=== PATIENT | male | born 1955 | race Caucasian/White ===

== ENCOUNTER 2018-01-11 02:15 | Emergency (ER) | payer SELFPAY ==
[~2018-01-11] VITALS: Ht 180.3 cm; Wt 113.4 kg
[2018-01-11] MEDS ORDERED: PROAIR HFA8.5 GM INH (02:31)
[2018-01-11 02:42] VITALS: BP 127/64
[2018-01-11] MEDS ORDERED: PRED50TA PO (02:55)
--- NOTE | 2018-01-11 03:34 | RAD ---
AP portable chest radiograph 01/11/2018 Clinical History: Shortness of breath for last 2 hours. An AP erect portable digital radiograph of the chest was obtained. Comparison study is dated 12/30/2013. The cardiac silhouette is normal in size. The thoracic aorta is minimally tortuous. No acute pulmonary infiltrate is seen. No pleural effusion or pneumothorax is noted. Degenerative changes are seen involving the thoracic spine and shoulders. Impression: No acute abnormality is seen. Electronically signed by: Mata Sanders MD (01/11/2018 3:30 AM) [id number]
--- NOTE | 2018-01-11 03:41 | PHYS DOC ---
Past Medical History Past Medical History: Asthma, Seizure, Other Additional Past Medical Histor: pt reports seizure free 31 years Past Surgical History: No Surgical History Alcohol Use: None Drug Use: None Adult General Chief Complaint Chief Complaint: SHORTNESS OF BREATH [facility] Patient is a 62 year old male brought in by ambulance with shortness of breath apparently he burned some potatoes that was spoke to fold up his kitchen it exacerbated his previously Janki asthma. Apparently he had saturations in the high 80s X gave DuoNeb which improved significantly on arrival to the emergency room he is feeling much better Patient says he has not had any asthma symptoms for over 7 years he has never been a smoker he does not have any medical insurance so he does not get regular follow up. He says he occasionally has some chest tightness with breathing since the nebulizer treatment from the paramedics but overall he is feeling much better Review of Systems Review of Systems Constitutional: Denies fever or chills [] Eyes: Denies change in visual acuity, redness, or eye pain [] HENT: Denies nasal congestion or sore throat [] Respiratory: This was a sudden onset symptoms he had not had any other symptoms previous Cardiovascular: No additional information not addressed in HPI [] Neurologic: Denies headache, focal weakness or sensory changes [] All other systems were reviewed and found to be within normal limits, except as documented in this note. Allergies Allergies Allergies Coded Allergies Type Severity Reaction Last Updated Verified Sulfa (Sulfonamide Antibiotics) Allergy Intermediate Rash 12/30/13 Yes Physical Exam Physical Exam Constitutional: Well developed, well nourished, no acute distress, non-toxic appearance. [] HENT: Normocephalic, atraumatic, bilateral external ears normal, oropharynx moist, no oral exudates, nose normal. [] Eyes: PERRLA, EOMI, conjunctiva normal, no discharge. [] Neck: Normal range of motion, no tenderness, supple, no stridor. [] Cardiovascular:Heart rate regular rhythm, no murmur [] Lungs & Thorax: Patient speaking full sentences possible very faint wheezing in the right lung base however not repeatable and subsequent breath Abdomen: Bowel sounds normal, soft, no tenderness, no masses, no pulsatile masses. [] Skin: Warm, dry, no erythema, no rash. [] Back: No tenderness, no CVA tenderness. [] Extremities: No tenderness, no cyanosis, no clubbing, ROM intact, no edema. [] Neurologic: Alert and oriented X 3, normal motor function, normal sensory function, no focal deficits noted. [] Psychologic: Affect normal, judgement normal, mood normal. [] Current Patient Data Vital Signs Vital Signs Date Time Temp Pulse Resp B/P (MAP) Pulse Ox O2 Delivery O2 Flow Rate FiO2 01/11/18 02:42 78 22 127/64 (85) 95 Room Air 01/11/18 02:19 97.9 97.9 EKG EKG [] Radiology/Procedures Radiology/Procedures [] Impressions: My interpretation of chest x-ray normal cardiac silhouette normal bones no pneumothorax. Interpreted by me time of encounter Course & Med Decision Making Course & Med Decision Making Pertinent Labs and Imaging studies reviewed. (See chart for details) []62-year-old male with known asthma presenting with a asthma exacerbation likely related to smoke exposure. Albuterol was given by the medics with basically resolution of symptoms sat was in the mid to high 90s screening x-ray was negative prescription for albuterol and prednisone was given patient was instructed to return precautions and he is agreeable to the plan. Dragon Disclaimer Dragon Disclaimer This electronic medical record was generated, in whole or in part, using a voice recognition dictation system. Departure Departure Impression: Primary Impression: Asthma Disposition: 01 HOME, SELF-CARE Condition: STABLE Referrals: NO PCP (PCP) NON,STAFF Patient Instructions: Asthma Attacks, Prevention Scripts Prednisone (PREDNISONE) 50 Mg Tablet 1 TAB PO DAILY, #5 TAB Prov: NABIL MCRAE MD 01/11/18 Albuterol Sulfate (PROAIR HFA INHALER) 8.5 Gm Hfa.aer.ad 1 PUFF INH PRN Q6HRS PRN for SHORTNESS OF BREATH, #1 INHALER 0 Refills Prov: NABIL MCRAE MD 01/11/18 NABIL MCRAE MD Jan 11, 2018 03:41
== END 2018-01-11 03:06 | disposition home or self-care (01) ==
LOC: ER 02:15
DX: J45.909 Unspecified asthma, uncomplicated (principal); Z88.2 Allergy status to sulfonamides
CPT/HCPCS: 71045; 99283

== ENCOUNTER 2020-10-06 13:05 | Observation (INO) | payer MEDICARE ==
[~2020-10-06] VITALS: Ht 180.3 cm; Wt 118.4 kg
[2020-10-06] VITALS (7 sets, daily range): BP systolic 119–135; BP diastolic 54–71
[~2020-10-06 13:05] MED LIST: ALBU2.5V8 INH; ASPI-886 PO; ATOR20TA58 PO; PRED-220 PO; PRED50TA PO
[2020-10-06] MEDS ORDERED: ONDANSETRON PF 4 MG/2 ML VIAL. ONE ×2 (13:17→16:10)
[2020-10-06] MEDS ORDERED: MORPHINE SULFATE 4 MG/ML INJ. IVP ONE (13:30)
[2020-10-06] MEDS ORDERED: IV NORMAL SALINE 1000ML BAG 1,000 ML IV ONE (13:30)
[2020-10-06] MEDS ORDERED: ONDANSETRON PF 4 MG/2 ML VIAL. IVP ONE ×2 (13:30→15:30)
[2020-10-06 13:38] LABS: BASO % 0 % (0-3); EOS % 0 % (0-3); HEMATOCRIT 37.7 % (39.0-53.0); HEMOGLOBIN 12.9 g/dL (13.0-17.5); LYMPH # 0.8 x10^3/uL (1.0-4.8); LYMPH % 5 % (24-48); MEAN CORPUSCULAR HEMOGLOBIN 31 pg (25-35); MEAN CORPUSCULAR HGB CONC 34 g/dL (31-37); MEAN CORPUSCULAR VOLUME 92 fL (79-100); MONO # 0.8 x10^3/uL (0.0-1.1); MONO % 5 % (0-9); NEUT # 12.9 x10^3/uL (1.8-7.7); NEUT % 89 % (31-73); PLATELET COUNT 294 x10^3/uL (140-400); RED BLOOD COUNT 4.11 x10^6/uL (4.30-5.70); RED CELL DISTRIBUTION WIDTH 13.7 % (11.5-14.5); WHITE BLOOD COUNT 14.5 x10^3/uL (4.0-11.0)
[2020-10-06 13:49] LABS: CALCIUM 8.8 mg/dL (8.5-10.1); CREATININE 1.1 mg/dL (0.7-1.3); GFR 67.2; POTASSIUM 3.9 mmol/L (3.5-5.1)
[2020-10-06 13:55] LABS: ALBUMIN 3.6 g/dL (3.4-5.0); TOTAL BILIRUBIN 0.6 mg/dL (0.2-1.0); TOTAL PROTEIN 7.2 g/dL (6.4-8.2)
[2020-10-06] MEDS ORDERED: IOHEXOL 300 MG/ML 100ML VIAL. IV ONE (14:00)
[2020-10-06] MEDS ORDERED: CONTRAST GIVEN. MC PRN (14:00)
--- NOTE | 2020-10-06 14:22 | RAD ---
EXAMINATION: CT abdomen and pelvis with IV contrast. INDICATION:65 years, Male, abdominal pain, nausea and vomiting.. TECHNIQUE: Axial CT images of the abdomen and pelvis were obtained. Coronal and sagittal reformatted performed. COMPARISON: None. Exposure: One or more of the following individualized dose reduction techniques were utilized for thi s examination: 1. Automated exposure control 2. Adjustment of the mA and/or kV according to patient size 3. Use of iterative reconstruction technique. FINDINGS: LOWER CHEST: Calcified granuloma in the left lung base. Dependent subsegmental atelectasis in bibasilar lungs, gre ater in the left. ABDOMEN/PELVIS: Distended mid/distal appendix with appendicoliths and periappendicular fat stranding. No extraluminal gas to suggest perforation. No abscess identified. No bowel obstruction. Colonic diverticulosis with out diverticulitis. Small hiatal hernia. Normal size and morphology of the liver with homogeneous enhancement. No suspicious focal hepatic les ion. Spleen, gallbladder, biliary ducts and adrenals are unremarkable. Mildly atrophic pancreas with fat infiltration. No hydronephrosis or nephrolithiasis in either kidney. Nonspecific bilateral perine phric fat stranding. Normal caliber abdominal aorta. Mesenteric arteries and portal vein are patent. Calcified periaortic lymph nodes. No lymphadenopathy in the abdomen or pelvis by size criteria. No pneumoperitoneum or asc ites. Unremarkable urinary bladder. Coarse calcifications in the prostate. MUSCULOSKELETAL: No acute osseous process. Mild degenerative changes in the spine. Small fat-containing bilateral emilie ia. IMPRESSION: Acute uncomplicated appendicitis. Electronically signed by: Lalito Short MD (10/06/2020 2:20 PM) [facility]
[2020-10-06] MEDS ORDERED: HYDROmorphone 2 MG/ML VIAL IVP ONE (15:15)
[2020-10-06 15:25] LABS: % BANDS 3 % (0-9); % LYMPHS 7 % (24-48); % MONOS 5 % (0-10); % SEGS 85 % (35-66)
[2020-10-06 15:26] LABS: PLT ESTIMATE ADEQUATE (ADEQUATE)
[2020-10-06] MEDS ORDERED: HYDROmorphone 2 MG/ML VIAL IVP PRN (16:00)
[2020-10-06] MEDS ORDERED: IV RINGERS,LACTATED 1000ML 1,000 ML IV SCH (16:00)
[2020-10-06] MEDS ORDERED: fentaNYL PF VIAL 100 MCG/2 ML VIAL IVP PRN ×2 (16:00)
[2020-10-06] MEDS ORDERED: PROCHLORPERAZINE 10 MG/2 ML VIAL. IVP PRN (16:00)
[2020-10-06] MEDS ORDERED: BUPIVACAINE-EPI 0.25%-1:200000 MPF 30 ML VIAL. ONE (16:03)
[2020-10-06 16:10] LABS: BILIRUBIN,URINE NEGATIVE (NEG); CLARITY,URINE CLEAR; COLOR,URINE YELLOW; NITRITE,URINE NEGATIVE (NEG); PH,URINE 5.5 (<5.0-8.0); PROTEIN,URINE NEGATIVE (NEG-TRACE); UROBILINOGEN,URINE 0.2 mg/dL (0.2 mg/dL)
[2020-10-06] MEDS ORDERED: DEXAMETHASONE SOD PHOS 4 MG/ML VIAL ONE (16:10)
[2020-10-06] MEDS ORDERED: LIDOCAINE 1% PF 5 ML VIAL. ONE (16:10)
[2020-10-06] MEDS ORDERED: PROPOFOL 10 MG/ML (20ML) VIAL. IV ONE (16:10)
[2020-10-06] MEDS ORDERED: ROCURONIUM 50 MG/5 ML VIAL. ONE (16:10)
[2020-10-06] MEDS ORDERED: fentaNYL PF VIAL 100 MCG/2 ML VIAL ONE ×2 (16:10→17:14)
[2020-10-06] MEDS ORDERED: GLYCOPYRROLATE 1 MG/5 ML VIAL. ONE (16:11)
[2020-10-06] MEDS ORDERED: NEOSTIGMINE METHYLSULFATE 5 MG/5 ML SYRINGE. ONE (16:11)
[2020-10-06 16:17] LABS: BARBITURATES NEG (NEG); BENZODIAZEPINES NEG (NEG); CANNABINOIDS NEG (NEG); COCAINE NEG (NEG); METHADONE NEG (NEG); OPIATES POS (NEG); PHENCYCLIDINE NEG (NEG)
[2020-10-06 16:19] LABS: AMPHETAMINE/METHAMPHETAMINE NEG (NEG)
[2020-10-06] MEDS ORDERED: PIPERACILLIN/TAZOBACTAM 3.375 GM in IV NORMAL SALINE 50ML 50 ML IV ONE (16:30)
--- NOTE | 2020-10-06 16:33 | PDOC2 ---
CONSULT Date of Consult Date of Consult DATE: 10/06/20 TIME: 16:30 Reason for Consult Reason for Consult: Abdominal pain nausea vomiting Identification/Chief Complaint Chief Complaint Abdominal pain Source Source: Chart review, Patient History of Present Illness Reason for Visit: 65-year-old male who has been feeling ill for approximately 2 days with nausea vomiting abdominal pain mostly right lower quadrant came to emergency department further evaluation CT scan shows signs consistent with acute appendicitis without abscess or rupture elevated white count and low-grade fever Past Medical History Cardiovascular: Hyperlipidemia Pulmonary: Asthma CENTRAL NERVOUS SYSTEM: Seizure GI: No pertinent hx Heme/Onc: No pertinent hx Hepatobiliary: No pertinent hx Psych: No pertinent hx Musculoskeletal: Osteoarthritis Rheumatologic: No pertinent hx Infectious disease: No pertinent hx Renal/: No pertinent hx Endocrine: No pertinent hx Past Surgical History Past Surgical History: Other Family History Family History: Diabetes Social History ALCOHOL: occassional Drugs: None Lives: Alone Current Medications Current Medications Current Medications Ondansetron HCl (Zofran) 4 mg STK-MED ONCE .ROUTE ; Start 10/06/20 at 13:17; Stop 10/06/20 at 13:17; Status DC Ondansetron HCl (Zofran) 4 mg 1X ONCE IVP Last administered on 10/06/20at 13:25; Start 10/06/20 at 13:30; Stop 10/06/20 at 13:31; Status DC Morphine Sulfate (Morphine Sulfate) 4 mg 1X ONCE IVP Last administered on 10/06/20at 13:32; Start 10/06/20 at 13:30; Stop 10/06/20 at 13:31; Status DC Sodium Chloride 1,000 ml @ 1,000 mls/hr 1X ONCE IV Last administered on 10/06/20at 13:30; Start 10/06/20 at 13:30; Stop 10/06/20 at 14:29; Status DC Iohexol (Omnipaque 300 Mg/ml) 75 ml 1X ONCE IV Last administered on 10/06/20at 14:02; Start 10/06/20 at 14:00; Stop 10/06/20 at 14:01; Status DC Info (CONTRAST GIVEN -- Rx MONITORING) 1 each PRN DAILY PRN MC SEE COMMENTS; Start 10/06/20 at 14:00; Stop 10/08/20 at 13:59 Hydromorphone HCl (Dilaudid) 1 mg 1X ONCE IVP Last administered on 10/06/20at 15:16; Start 10/06/20 at 15:15; Stop 10/06/20 at 15:16; Status DC Ondansetron HCl (Zofran) 4 mg 1X ONCE IVP Last administered on 10/06/20at 15:23; Start 10/06/20 at 15:30; Stop 10/06/20 at 15:31; Status DC Fentanyl Citrate (Fentanyl 2ml Vial) 25 mcg PRN Q5MIN PRN IVP MILD PAIN 1-3; Start 10/06/20 at 16:00; Stop 10/07/20 at 15:59 Fentanyl Citrate (Fentanyl 2ml Vial) 50 mcg PRN Q5MIN PRN IVP MODERATE PAIN 4- 6; Start 10/06/20 at 16:00; Stop 10/07/20 at 15:59 Morphine Sulfate (Morphine Sulfate) 1 mg PRN Q10MIN PRN IVP SEVERE PAIN 7-10; Start 10/06/20 at 16:00; Stop 10/07/20 at 15:59 Ringer's Solution 1,000 ml @ 30 mls/hr Q24H IV ; Start 10/06/20 at 16:00; Stop 10/07/20 at 03:59 Hydromorphone HCl (Dilaudid) 0.5 mg PRN Q10MIN PRN IVP SEVERE PAIN 7-10, 2nd CHOICE; Start 10/06/20 at 16:00; Stop 10/07/20 at 15:59 Prochlorperazine Edisylate (Compazine) 5 mg PACU PRN PRN IVP NAUSEA, MRX1; Start 10/06/20 at 16:00; Stop 10/07/20 at 15:59 Bupivacaine HCl/ Epinephrine Bitart (Sensorcaine-Epi 0.25%-1:832666 Mpf) 30 ml STK-MED ONCE .ROUTE ; Start 10/06/20 at 16:03; Stop 10/06/20 at 16:03; Status DC Propofol (Diprivan) 200 mg STK-MED ONCE IV ; Start 10/06/20 at 16:10; Stop 10/06/20 at 16:10; Status DC Lidocaine HCl (Xylocaine-Mpf 1% 5ml Vial) 5 ml STK-MED ONCE .ROUTE ; Start 10/06/20 at 16:10; Stop 10/06/20 at 16:10; Status DC Ondansetron HCl (Zofran) 4 mg STK-MED ONCE .ROUTE ; Start 10/06/20 at 16:10; Stop 10/06/20 at 16:10; Status DC Dexamethasone Sodium Phosphate (Decadron) 4 mg STK-MED ONCE .ROUTE ; Start 10/06/20 at 16:10; Stop 10/06/20 at 16:10; Status DC Rocuronium [place] (Zemuron) 50 mg STK-MED ONCE .ROUTE ; Start 10/06/20 at 16:10; Stop 10/06/20 at 16:10; Status DC Fentanyl Citrate (Fentanyl 2ml Vial) 100 mcg STK-MED ONCE .ROUTE ; Start 10/06/20 at 16:10; Stop 10/06/20 at 16:11; Status DC Glycopyrrolate (Robinul) 1 mg STK-MED ONCE .ROUTE ; Start 10/06/20 at 16:11; Stop 10/06/20 at 16:11; Status DC Neostigmine [place] (Neostigmine Methylsulfate) 5 mg STK-MED ONCE .ROUTE ; Star t 10/06/20 at 16:11; Stop 10/06/20 at 16:11; Status DC Active Scripts Active Aspirin Ec (Aspirin) 81 Mg Tablet.dr 81 Mg PO DAILYWBKFT 90 Days Atorvastatin Calcium 20 Mg Tablet 20 Mg PO QHS 90 Days Reported No Known Medications Prior To Admisstion (Info) Each 1 Each MC ONCE Allergies Allergies: Coded Allergies: Sulfa (Sulfonamide Antibiotics) (Verified Allergy, Intermediate, Rash, 12/30/13) ROS General: YES: Malaise Gastrointestinal: Yes Nausea, Yes Vomiting, Yes Abdominal Pain Physical Exam General: Alert, Oriented X3, Cooperative, mild distress HEENT: Atraumatic, EOMI Lungs: Clear to auscultation, Normal air movement Heart: Regular rate, No murmurs Abdomen: Normal bowel sounds, Soft, Other (Tender to palpation right lower quadrant) Extremities: No edema Skin: No significant lesion Neuro: Normal speech Psych/Mental Status: Mental status NL Vitals VITALS Vital Signs Date Time Temp Pulse Resp B/P (MAP) Pulse Ox O2 Delivery O2 Flow Rate FiO2 8/26/21 16:21 98.4 86 16 122/62 96 Room Air 98.4 Labs Labs Laboratory Tests Test 10/06/20 13:25 10/06/20 13:35 10/06/20 16:00 White Blood Count 14.5 x10^3/uL (4.0-11.0) Red Blood Count 4.11 x10^6/uL (4.30-5.70) Hemoglobin 12.9 g/dL (13.0-17.5) Hematocrit 37.7 % (39.0-53.0) Mean Corpuscular Volume 92 fL (79-100) Mean Corpuscular Hemoglobin 31 pg (25-35) Mean Corpuscular Hemoglobin Concent 34 g/dL (31-37) Red Cell Distribution Width 13.7 % (11.5-14.5) Platelet Count 294 x10^3/uL (140-400) Neutrophils (%) (Auto) 89 % (31-73) Lymphocytes (%) (Auto) 5 % (24-48) Monocytes (%) (Auto) 5 % (0-9) Eosinophils (%) (Auto) 0 % (0-3) Basophils (%) (Auto) 0 % (0-3) Neutrophils # (Auto) 12.9 x10^3/uL (1.8-7.7) Lymphocytes # (Auto) 0.8 x10^3/uL (1.0-4.8) Monocytes # (Auto) 0.8 x10^3/uL (0.0-1.1) Eosinophils # (Auto) 0.0 x10^3/uL (0.0-0.7) Basophils # (Auto) 0.0 x10^3/uL (0.0-0.2) Segmented Neutrophils % 85 % (35-66) Band Neutrophils % 3 % (0-9) Lymphocytes % 7 % (24-48) Monocytes % 5 % (0-10) Platelet Estimate Adequate (ADEQUATE) Sodium Level 139 mmol/L (136-145) Potassium Level 3.9 mmol/L (3.5-5.1) Chloride Level 105 mmol/L (98-107) Carbon Dioxide Level 24 mmol/L (21-32) Anion Gap 10 (6-14) Blood Urea Nitrogen 18 mg/dL (8-26) Creatinine 1.1 mg/dL (0.7-1.3) Estimated GFR (Cockcroft-Gault) 67.2 BUN/Creatinine Ratio 16 (6-20) Glucose Level 124 mg/dL (70-99) Calcium Level 8.8 mg/dL (8.5-10.1) Total Bilirubin 0.6 mg/dL (0.2-1.0) Aspartate Amino Transf (AST/SGOT) 14 U/L (15-37) Alanine Aminotransferase (ALT/SGPT) 32 U/L (16-63) Alkaline Phosphatase 72 U/L (46-116) Total Protein 7.2 g/dL (6.4-8.2) Albumin 3.6 g/dL (3.4-5.0) Albumin/Globulin Ratio 1.0 (1.0-1.7) Lipase 62 U/L (73-393) Ethyl Alcohol Level < 10 mg/dL (0-10) SARS-CoV-2 Antigen (Rapid) Negative (NEGATIVE) Urine Opiates Screen Pos (NEG) Urine Methadone Screen Neg (NEG) Urine Barbiturates Neg (NEG) Urine Phencyclidine Screen Neg (NEG) Urine Amphetamine/Methamphetamine Neg (NEG) Urine Benzodiazepines Screen Neg (NEG) Urine Cocaine Screen Neg (NEG) Urine Cannabinoids Screen Neg (NEG) Urine Ethyl Alcohol Neg (NEG) Laboratory Tests Test 10/06/20 13:25 10/06/20 13:35 10/06/20 16:00 White Blood Count 14.5 x10^3/uL (4.0-11.0) Red Blood Count 4.11 x10^6/uL (4.30-5.70) Hemoglobin 12.9 g/dL (13.0-17.5) Hematocrit 37.7 % (39.0-53.0) Mean Corpuscular Volume 92 fL (79-100) Mean Corpuscular Hemoglobin 31 pg (25-35) Mean Corpuscular Hemoglobin Concent 34 g/dL (31-37) Red Cell Distribution Width 13.7 % (11.5-14.5) Platelet Count 294 x10^3/uL (140-400) Neutrophils (%) (Auto) 89 % (31-73) Lymphocytes (%) (Auto) 5 % (24-48) Monocytes (%) (Auto) 5 % (0-9) Eosinophils (%) (Auto) 0 % (0-3) Basophils (%) (Auto) 0 % (0-3) Neutrophils # (Auto) 12.9 x10^3/uL (1.8-7.7) Lymphocytes # (Auto) 0.8 x10^3/uL (1.0-4.8) Monocytes # (Auto) 0.8 x10^3/uL (0.0-1.1) Eosinophils # (Auto) 0.0 x10^3/uL (0.0-0.7) Basophils # (Auto) 0.0 x10^3/uL (0.0-0.2) Segmented Neutrophils % 85 % (35-66) Band Neutrophils % 3 % (0-9) Lymphocytes % 7 % (24-48) Monocytes % 5 % (0-10) Platelet Estimate Adequate (ADEQUATE) Sodium Level 139 mmol/L (136-145) Potassium Level 3.9 mmol/L (3.5-5.1) Chloride Level 105 mmol/L (98-107) Carbon Dioxide Level 24 mmol/L (21-32) Anion Gap 10 (6-14) Blood Urea Nitrogen 18 mg/dL (8-26) Creatinine 1.1 mg/dL (0.7-1.3) Estimated GFR (Cockcroft-Gault) 67.2 BUN/Creatinine Ratio 16 (6-20) Glucose Level 124 mg/dL (70-99) Calcium Level 8.8 mg/dL (8.5-10.1) Total Bilirubin 0.6 mg/dL (0.2-1.0) Aspartate Amino Transf (AST/SGOT) 14 U/L (15-37) Alanine Aminotransferase (ALT/SGPT) 32 U/L (16-63) Alkaline Phosphatase 72 U/L (46-116) Total Protein 7.2 g/dL (6.4-8.2) Albumin 3.6 g/dL (3.4-5.0) Albumin/Globulin Ratio 1.0 (1.0-1.7) Lipase 62 U/L (73-393) Ethyl Alcohol Level < 10 mg/dL (0-10) SARS-CoV-2 Antigen (Rapid) Negative (NEGATIVE) Urine Opiates Screen Pos (NEG) Urine Methadone Screen Neg (NEG) Urine Barbiturates Neg (NEG) Urine Phencyclidine Screen Neg (NEG) Urine Amphetamine/Methamphetamine Neg (NEG) Urine Benzodiazepines Screen Neg (NEG) Urine Cocaine Screen Neg (NEG) Urine Cannabinoids Screen Neg (NEG) Urine Ethyl Alcohol Neg (NEG) Assessment/Plan Assessment/Plan Acute appendicitis plan laparoscopic appendectomy DERRICK CORREA MD Oct 06, 2020 16:33
[2020-10-06 16:37] LABS: BACTERIA,URINE FEW /HPF (0-FEW)
[2020-10-06 16:50] LABS: INFLUENZA A PATIENT NEGATIVE (NEGATIVE); INFLUENZA B PATIENT NEGATIVE (NEGATIVE)
[2020-10-06] MEDS ORDERED: SURGICEL HEMOSTAT 4X8 EACH. ONE (17:14)
[2020-10-06] MEDS ORDERED: SEVOFLURANE 61 TO 120 MINUTES. IH ONE (17:19)
--- NOTE | 2020-10-06 17:34 | PDOC4 ---
Operative Note Operative Note Date: October 062020 at 1731 Preoperative diagnosis: Acute appendicitis Postoperative diagnosis: Same Procedure: Laparoscopic appendectomy Specimen: Appendix Surgeon: Dilip Dictation: Patient is a 65-year-old male was admitted to the hospital through the emergency department with acute appendicitis by CT scan and leukocytosis. Procedure of laparoscopic appendectomy was explained to the patient detail risk benefits were also discussed including bleeding infection alternatives this procedure also discussed with patient who seemed to understand and gave both verbal and written consent to have the procedure performed. Patient was taken to the operating room placed in the supine position general anesthesia was initiated once patient was sleeping intubated his abdomen was prepped and draped usual sterile fashion using ChloraPrep. Area just below the umbilicus was injected with quarter percent Marcaine with epinephrine incision was made 11 blade scalpel and a varies needle was placed within the abdomen creating pneumoperitoneum once this was complete a 12 mm port was placed and a 5 mm camera was placed within the abdomen which was inspected appendix was quite dilated and edematous. No evidence of rupture. 5 mm port was placed in the right midabdomen and a 5 mm port was placed in the right lower abdomen. The appendix was grasped retracted towards the anterior abdominal wall a window was propagated the base the appendix with a [place] dissector. A Endo ABISAI stapler was then used to staple and transect the base of the appendix a second load was used to staple and transect the mesoappendix. The appendix placed in Endo Catch bag removed and the umbilicus there is a small bleeder within the mesoappendix this was clipped with a 10 mm clip lockstitch collar setter. Surgicel was packed in this area the rest of the pelvis and right lower quadrant were irrigated and suctioned dry hemostasis deemed be appropriate that point and the Surgicel was removed. Pneumoperitoneum was reduced all ports removed the fascial defect at the umbilicus was closed with a [id number] 0 Vicryl suture and the skin was reapproximated all port sites for subcuticular Monocryl Mastisol Steri-Strips and island dressings were applied. Patient was awakened and extubated in the operating room taken to recovery in stable condition all sponge instrument needle counts listed as correct estimated blood loss 30 mL DERRICK CORREA MD Oct 06, 2020 17:34
[2020-10-06] MEDS ORDERED: 0.9 % SODIUM CHLORIDE 10 ML DISP.SYRIN. IV PRN (17:45)
[2020-10-06] MEDS ORDERED: MORPHINE SULFATE 2 MG/ML INJ. IV PRN (17:45)
[2020-10-06] MEDS ORDERED: oxyCODONE/APAP 5/325 1 TAB TABLET PO PRN (17:45)
[2020-10-06] MEDS ORDERED: ONDANSETRON PF 4 MG/2 ML VIAL. IV PRN (17:45)
--- NOTE | 2020-10-06 17:52 | PHYS DOC ---
Past Medical History Past Medical History: Asthma, Seizure Additional Past Medical Histor: per ptkristine sz 10/04/20 (LOLACATALINAHARDEEP Jacqueline TENNIS PLAYER) Past Surgical History: No Surgical History (HARDEEP EGAN Jacqueline [employer]) Smoking Status: Never Smoker Alcohol Use: None Drug Use: None (HARDEEP EGAN Jacqueline [employer]ER) General Adult EDM: Chief Complaint: ABDOMINAL PAIN HPI: HPI: Patient is a 65 year old male with history of seizures, who presents to the ED today complaining of 10 out of 10 sharp constant lower abdominal pain worse on the right side, symptoms began yesterday. Patient states symptoms are worse on touching his right lower abdomen. Patient is also complaining of nausea, vomiting, chills and subjective fevers since yesterday. Denies any chest pain or shortness of breath. (HARDEEP EGAN TENNIS PLAYER) Review of Systems: Review of Systems: Constitutional: Reports subjective fevers and chills Eyes: Denies change in visual acuity. [] HENT: Denies nasal congestion or sore throat. [] Respiratory: Denies cough or shortness of breath. [] Cardiovascular: Denies chest pain or edema. [] GI: Reports right lower quadrant abdominal pain with nausea, and vomiting denies bloody stools or diarrhea. [] : Denies dysuria. [] Musculoskeletal: Denies back pain or joint pain. [] Integument: Denies rash. [] Neurologic: Denies headache, focal weakness or sensory changes. [] Psychiatric: Denies depression or anxiety. [] (LESTERIsaakHARDEEP Jacqueline TENNIS PLAYER) Heart Score: C/O Chest Pain: N/A Risk Factors: Risk Factors: DM, Current or recent (<one month) smoker, HTN, HLP, family history of CAD, obesity. Risk Scores: Score 0 - 3: 2.5% MACE over next 6 weeks - Discharge Home Score 4 - 6: 20.3% MACE over next 6 weeks - Admit for Clinical Observation Score 7 - 10: 72.7% MACE over next 6 weeks - Early Invasive Strategies (LESTERIsaakHARDEEP Jacqueline [employer]ENNIS PLAYER) Current Medications: Current Medications Medications (Trade) Dose Ordered Sig/Lon Start Time Stop Time Status Last Admin Dose Admin Bupivacaine HCl/ Epinephrine Bitart (Sensorcaine-Epi 0.25%-1:[id number] Mpf) 30 ml STK-MED ONCE 10/06/20 16:03 10/06/20 16:03 DC 10/06/20 16:53 20 ML Cellulose (Surgicel Hemostat 4x8) 1 each STK-MED ONCE 10/06/20 17:14 10/06/20 17:15 DC 10/06/20 17:17 1 EACH Dexamethasone Sodium Phosphate (Decadron) 4 mg STK-MED ONCE 10/06/20 16:10 10/06/20 16:10 DC Dextrose/Lactated Ringer's 1,000 ml @ 75 mls/hr [id number] 10/06/20 17:45 Fentanyl Citrate (Fentanyl 2ml Vial) 100 mcg STK-MED ONCE 10/06/20 17:14 10/06/20 17:14 DC Glycopyrrolate (Robinul) 1 mg STK-MED ONCE 10/06/20 16:11 10/06/20 16:11 DC Hydromorphone HCl (Dilaudid) 0.5 mg PRN Q10MIN PRN 10/06/20 16:00 10/07/20 15:59 Info (CONTRAST GIVEN -- Rx MONITORING) 1 each PRN DAILY PRN 10/06/20 14:00 10/08/20 13:59 Iohexol (Omnipaque 300 Mg/ml) 75 ml 1X ONCE 10/06/20 14:00 10/06/20 14:01 DC 10/06/20 14:02 75 ML Lidocaine HCl (Xylocaine-Mpf 1% 5ml Vial) 5 ml STK-MED ONCE 10/06/20 16:10 10/06/20 16:10 DC Morphine Sulfate (Morphine Sulfate) 2 mg PRN Q3HRS PRN 10/06/20 17:45 Neostigmine [place] (Neostigmine Methylsulfate) 5 mg STK-MED ONCE 10/06/20 16:11 10/06/20 16:11 DC Ondansetron HCl (Zofran) 4 mg PRN Q6HRS PRN 10/06/20 17:45 Oxycodone/ Acetaminophen (Percocet 5/325) 2 tab PRN Q4HRS PRN 10/06/20 17:45 Piperacillin Sod/ Tazobactam Sod 3.375 gm/Sodium Chloride 50 ml @ 100 mls/hr Q6HRS 10/07/20 00:00 Prochlorperazine Edisylate (Compazine) 5 mg PACU PRN PRN 10/06/20 16:00 10/07/20 15:59 Propofol (Diprivan) 200 mg STK-MED ONCE 10/06/20 16:10 10/06/20 16:10 DC Ringer's Solution 1,000 ml @ 30 mls/hr Q24H 10/06/20 16:00 10/07/20 03:59 Rocuronium [place] (Zemuron) 50 mg STK-MED ONCE 10/06/20 16:10 10/06/20 16:10 DC Sevoflurane (Ultane) 60 ml STK-MED ONCE 10/06/20 17:19 10/06/20 17:19 DC Sodium Chloride (Normal Saline Flush) 3 ml QSHIFT PRN 10/06/20 17:45 (HARDEEP EGAN [employer]ENNIS PLAYER) Allergies: Allergies: Allergies Coded Allergies Type Severity Reaction Last Updated Verified Sulfa (Sulfonamide Antibiotics) Allergy Intermediate Rash 10/06/20 Yes (HARDEEP EGAN [employer]ENN[employer] PLAYER) Physical Exam: PE: Constitutional: Well developed, well nourished, no acute distress, non-toxic appearance. [] HENT: Normocephalic, atraumatic, bilateral external ears normal, oropharynx moist, no oral exudates, nose normal. [] Eyes: PERRLA, EOMI, conjunctiva normal, no discharge. [] Neck: Normal range of motion, no tenderness, supple, no stridor. [] Cardiovascular:Heart rate regular rhythm, no murmur [] Lungs & Thorax: Bilateral breath sounds clear to auscultation [] Abdomen: Obese rounded abdomen, bowel sounds normal, soft, diffuse tenderness to the lower abdomen worse on the right lower quadrant with positive psoas sign, no masses, no pulsatile masses. [] Skin: Warm, dry, no erythema, no rash. [] Back: No tenderness, no CVA tenderness. [] Extremities: No tenderness, no cyanosis, no clubbing, ROM intact, no edema. [] Neurologic: Alert and oriented X 3, normal motor function, normal sensory function, no focal deficits noted. [] Psychologic: Affect normal, judgement normal, mood normal. [] (HARDEEP EGAN APRN) Current Patient Data: Labs: Laboratory Tests Test 10/06/20 13:25 10/06/20 13:35 10/06/20 15:53 10/06/20 16:00 White Blood Count 14.5 x10^3/uL (4.0-11.0) H Red Blood Count 4.11 x10^6/uL (4.30-5.70) L Hemoglobin 12.9 g/dL (13.0-17.5) L Hematocrit 37.7 % (39.0-53.0) L Mean Corpuscular Volume 92 fL (79-100) Mean Corpuscular Hemoglobin 31 pg (25-35) Mean Corpuscular Hemoglobin Concent 34 g/dL (31-37) Red Cell Distribution Width 13.7 % (11.5-14.5) Platelet Count 294 x10^3/uL (140-400) Neutrophils (%) (Auto) 89 % (31-73) H Lymphocytes (%) (Auto) 5 % (24-48) L Monocytes (%) (Auto) 5 % (0-9) Eosinophils (%) (Auto) 0 % (0-3) Basophils (%) (Auto) 0 % (0-3) Neutrophils # (Auto) 12.9 x10^3/uL (1.8-7.7) H Lymphocytes # (Auto) 0.8 x10^3/uL (1.0-4.8) L Monocytes # (Auto) 0.8 x10^3/uL (0.0-1.1) Eosinophils # (Auto) 0.0 x10^3/uL (0.0-0.7) Basophils # (Auto) 0.0 x10^3/uL (0.0-0.2) Segmented Neutrophils % 85 % (35-66) H Band Neutrophils % 3 % (0-9) Lymphocytes % 7 % (24-48) L Monocytes % 5 % (0-10) Platelet Estimate Adequate (ADEQUATE) Sodium Level 139 mmol/L (136-145) Potassium Level 3.9 mmol/L (3.5-5.1) Chloride Level 105 mmol/L (98-107) Carbon Dioxide Level 24 mmol/L (21-32) Anion Gap 10 (6-14) Blood Urea Nitrogen 18 mg/dL (8-26) Creatinine 1.1 mg/dL (0.7-1.3) Estimated GFR (Cockcroft-Gault) 67.2 BUN/Creatinine Ratio 16 (6-20) Glucose Level 124 mg/dL (70-99) H Calcium Level 8.8 mg/dL (8.5-10.1) Total Bilirubin 0.6 mg/dL (0.2-1.0) Aspartate Amino Transferase (AST) 14 U/L (15-37) L Alanine Aminotransferase (ALT) 32 U/L (16-63) Alkaline Phosphatase 72 U/L (46-116) Total Protein 7.2 g/dL (6.4-8.2) Albumin 3.6 g/dL (3.4-5.0) Albumin/Globulin Ratio 1.0 (1.0-1.7) Lipase 62 U/L (73-393) L Ethyl Alcohol Level < 10 mg/dL (0-10) SARS-CoV-2 Antigen (Rapid) Negative (NEGATIVE) Influenza Type A Antigen Negative (NEGATIVE) Influenza Type B Antigen Negative (NEGATIVE) Urine Collection Type Void Urine Color Yellow Urine Clarity Clear Urine pH 5.5 (<5.0-8.0) Urine Specific [place] >=1.030 (1.000-1.030) Urine Protein Negative mg/dL (NEG-TRACE) Urine Glucose (UA) Negative mg/dL (NEG) Urine Ketones (Stick) Negative mg/dL (NEG) Urine Blood Small (NEG) Urine Nitrite Negative (NEG) Urine Bilirubin Negative (NEG) Urine Urobilinogen Dipstick 0.2 mg/dL (0.2 mg/dL) Urine Leukocyte Esterase Negative (NEG) Urine RBC 1-2 /HPF (0-2) Urine WBC 1-4 /HPF (0-4) Urine Squamous Epithelial Cells Few /LPF Urine Bacteria Few /HPF (0-FEW) Urine Opiates Screen Pos (NEG) Urine Methadone Screen Neg (NEG) Urine Barbiturates Neg (NEG) Urine Phencyclidine Screen Neg (NEG) Urine Amphetamine/Methamphetamine Neg (NEG) Urine Benzodiazepines Screen Neg (NEG) Urine Cocaine Screen Neg (NEG) Urine Cannabinoids Screen Neg (NEG) Urine Ethyl Alcohol Neg (NEG) Laboratory Tests 10/06/20 13:25 Laboratory Tests 10/06/20 13:25 Vital Signs: Vital Signs Date Time Temp Pulse Resp B/P (MAP) Pulse Ox O2 Delivery O2 Flow Rate FiO2 10/06/20 16:21 98.4 86 16 122/62 96 Room Air 98.4 (HARDEEP EGAN TENNIS PLAYER) EKG: EKG: [] (HARDEEP EGAN [employer]ENN[employer] PLAYER) Radiology/Procedures: Radiology/Procedures: []PROCEDURE: CT ABD PELV W/ IV CONTRST ONLY EXAMINATION: CT abdomen and pelvis with IV contrast. INDICATION:65 years, Male, abdominal pain, nausea and vomiting.. TECHNIQUE: Axial CT images of the abdomen and pelvis were obtained. Coronal and sagittal reformatted performed. COMPARISON: None. Exposure: One or more of the following individualized dose reduction techniques were utilized for this examination: 1. Automated exposure control 2. Adjustment of the mA and/or kV according to patient size 3. Use of iterative reconstruction technique. FINDINGS: LOWER CHEST: Calcified granuloma in the left lung base. Dependent subsegmental atelectasis in bibasilar lungs, greater in the left. ABDOMEN/PELVIS: Distended mid/distal appendix with appendicoliths and periappendicular fat stranding. No extraluminal gas to suggest perforation. No abscess identified. No bowel obstruction. Colonic diverticulosis without diverticulitis. Small hiatal hernia. Normal size and morphology of the liver with homogeneous enhancement. No suspicious focal hepatic lesion. Spleen, gallbladder, biliary ducts and adrenals are unremarkable. Mildly atrophic pancreas with fat infiltration. No hydronephrosis or nephrolithiasis in either kidney. Nonspecific bilateral perinephric fat stranding. Normal caliber abdominal aorta. Mesenteric arteries and portal vein are patent. Calcified periaortic lymph nodes. No lymphadenopathy in the abdomen or pelvis by size criteria. No pneumoperitoneum or ascites. Unremarkable urinary bladder. Coarse calcifications in the prostate. MUSCULOSKELETAL: No acute osseous process. Mild degenerative changes in the spine. Small fat-containing bilateral hernia. IMPRESSION: Acute uncomplicated appendicitis. Electronically signed by: Javid Short MD (10/06/2020 2:20 PM) [facility] DICTATED and SIGNED BY: JAVID SHORT MD DATE: 10/06/20 [id number] (LOLABENITOIsaakHARDEEP Jacqueline TENNIS PLAYER) Course & Med Decision Making: Course & Med Decision Making Pertinent Labs and Imaging studies reviewed. (See chart for details) This is a 65-year-old male patient presenting to the ED today complaining of abdominal pain worse on the right side with nausea and vomiting, chills, subjective fevers, symptoms began yesterday. Vitals on arrival to the ED temperature 99.1, heart rate 88, respiration 20, blood pressure 153/99, O2 sats 99% on room air CBC with a WBC of 14.5, hemoglobin 12.9 with hematocrit of 37.7, CMP with no acute findings CT of the abdomen and pelvics positive for acute appendicitis Spoke with Dr. Cherry who accepted patient for surgery Spoke with Dr. Lopes who admitted patient (HARDEEP EGAN APRN) Dragon Disclaimer: Dragon Disclaimer: This electronic medical record was generated, in whole or in part, using a voice recognition dictation system. (HARDEEP EGAN APRN) Departure Departure Impression: Primary Impression: Acute appendicitis Qualified Codes: K35.80 - Unspecified acute appendicitis Additional Impression: Anemia Qualified Codes: D64.89 - Other specified anemias Disposition: ADMITTED INPATIENT Condition: STABLE Referrals: NO PCP (PCP) Attending Signature Attending Signature I have participated in the care of this patient and I have reviewed and agree with all pertinent clinical information above including history, exam, and recommendations. (VERONICA BRYANT DO) HARDEEP EGAN APRN Oct 06, 2020 17:52 VERONICA BRYANT DO Oct 06, 2020 18:04
[2020-10-06] MEDS ORDERED: MORPHINE SULFATE 2 MG/ML INJ. ONE (18:06)
[2020-10-06] MEDS: MORPHINE SULFATE 2 MG/ML INJ. IVP PRN ×2 (18:08→18:20)
[2020-10-06] MEDS ORDERED: PROCHLORPERAZINE 10 MG/2 ML VIAL. ONE (18:20)
--- NOTE | 2020-10-06 18:22 | SSS ---
ADMIT DATE: 10/06/2020 CHIEF COMPLAINT: Abdominal pain. HISTORY OF PRESENT ILLNESS: The patient is a pleasant 65-year-old male who presented to the ER with abdominal pain. We did a CAT scan, he has got appendicitis. He has been taken for laparoscopic appendectomy a few minutes ago. He just arrived to the postoperative area, where he has been examined. I discussed the case with the ER physician and the nurse and Dr. Cherry, who just performed the surgery. PAST MEDICAL HISTORY: Seizures, but he apparently does not take any medicines for it. States he had grand mal seizures as a kid, but now he only has petite mal seizures once in a while, although he states he did have a seizure couple of days ago. Asthma. ALLERGIES: SULFA. FAMILY HISTORY: Diabetes. SOCIAL HISTORY: He does not drink, smoke or take drugs. MEDICATIONS: Reviewed, please refer to the MRAD. REVIEW OF SYSTEMS: Unable to obtain. The patient is sedated. PHYSICAL EXAMINATION: VITALS: Within normal limits and are stable. GENERAL: No apparent distress. Alert and oriented. HEENT: Normal cephalic atraumatic, external auditory canals are patent. EYES: Extraocular muscles are intact, pupils are equally round and reactive to light and accommodation. MUSCULOSKELETAL: Well developed, well nourished, good range of motion. ENDOCRINE: No thyromegaly was palpated. LYMPHATICS: No cervical chain or axillary nodes were noted. HEMATOPOIETIC: No bruising. NECK: Supple, no JVD, no thyromegaly was noted. LUNGS: Clear to auscultation in all lung lai without rhonchi or wheezing. HEART: RRR, S1, S2 present. Peripheral pulses intact, no obvious murmurs were noted. ABDOMEN: He has decreased bowel sound. He has 3 trocar sites. EXTREMITIES: He has trace edema. NEUROLOGIC: Normal speech, normal tone. A and O x 3, moves all extremities, no obvious focal deficits. PSYCHIATRIC: Normal affect, normal mood. Stable. SKIN: No ulcerations or rashes, good skin turgor, no jaundice. VASCULAR: Good capillary refill, neurovascular bundle appears to be intact. GENITOURINARY: He is uncircumcised. LABORATORY DATA: White count 14, hemoglobin 12.9, platelets 294. Electrolytes are normal. Drug screen positive for opiates, but I suspect he got that in the ER. Urinalysis negative. COVID testing negative. CT of the abdomen showed appendicitis. ASSESSMENT AND PLAN: Postop laparoscopic appendectomy for appendicitis. Clinically, he is stable. I did order some p.r.n. Ativan in case he does have a seizure. If he does have a seizure, we will consult Dr. Silveira. For now, we are going to wound care, home meds. DVT prophylaxis. Full code. I spoke with Dr. Cherry, he would like to go ahead and start feeding the patient later this evening if possible and then will hopefully get him home tomorrow. CARMEN DR: Gay TID: [id number]
[2020-10-06] MEDS ORDERED: ONDANSETRON PF 4 MG/2 ML VIAL. IVP PRN (19:00)
[2020-10-06] MEDS: IV DEXTROSE 5%-LACT RINGERS 1,000 ML IV SCH (20:37)
--- NOTE | 2020-10-06 21:00 | NUR ---
ADMIT NOTE The patient, THAIS SARGENT, 65 y/o, M admitted by GRACIE ADORNO III, DO, was given written information regarding hospital policies, unit procedures and contact persons. Patient orientated to room, plan of care discussed, and admit packet reviewed. Patient's allergies and pharmacy verified; patient reports no active medications. Patient resting in bed, bed in lowest/locked position, and call light within reach; no other needs voiced at this time.
[2020-10-07] MEDS: PIPERACILLIN/TAZOBACTAM 3.375 GM in IV NORMAL SALINE 50ML 50 ML IV SCH ×3 (00:27→11:42)
[2020-10-07 03:06] VITALS: BP 126/72
[2020-10-07] MEDS: oxyCODONE/APAP 5/325 1 TAB TABLET PO PRN ×2 (03:30→07:31)
[2020-10-07 05:38] LABS: BASO % 0 % (0-3); EOS % 0 % (0-3); HEMATOCRIT 35.6 % (39.0-53.0); HEMOGLOBIN 12.2 g/dL (13.0-17.5); LYMPH # 0.5 x10^3/uL (1.0-4.8); LYMPH % 4 % (24-48); MEAN CORPUSCULAR HEMOGLOBIN 32 pg (25-35); MEAN CORPUSCULAR HGB CONC 34 g/dL (31-37); MEAN CORPUSCULAR VOLUME 93 fL (79-100); MONO # 0.4 x10^3/uL (0.0-1.1); MONO % 4 % (0-9); NEUT # 10.7 x10^3/uL (1.8-7.7); NEUT % 92 % (31-73); PLATELET COUNT 276 x10^3/uL (140-400); RED BLOOD COUNT 3.84 x10^6/uL (4.30-5.70); RED CELL DISTRIBUTION WIDTH 13.7 % (11.5-14.5); WHITE BLOOD COUNT 11.7 x10^3/uL (4.0-11.0)
[2020-10-07 07:10] VITALS: BP 113/51
[2020-10-07] MEDS: IV DEXTROSE 5%-LACT RINGERS 1,000 ML IV SCH (07:33)
--- NOTE | 2020-10-07 08:12 | PDOC1 ---
History and Physical Date of Service: DOS: DATE: 10/07/20 TIME: 08:12 Chief Complaint: Chief Complain: Abdominal pain History of Present Illness: HPI: Patient is a 65-year-old male with past medical history of asthma and seizure who presents to the ED complaining of abdominal pain. Pain is on the lower right quadrant 10 out of 10 that began yesterday. Symptoms worsened today upon light touch of the right lower side. Endorses associated symptoms of nausea, vomiting, fevers and chills. Denies any chest pain shortness of breath diarrhea or dysuria or bloody stools. Past Medical/Surgical History: PMH/PSH: Past medical history of seizures and asthma. Past surgical history denies Allergies: Allergies: Coded Allergies: Sulfa (Sulfonamide Antibiotics) (Verified Allergy, Intermediate, Rash, 10/06/20) Family History: Family History: Reviewed with no relevant findings Social History: Social History: Denies any alcohol, drug or tobacco abuse Current Medications: Current Medications Current Medications Ondansetron HCl (Zofran) 4 mg STK-MED ONCE .ROUTE ; Start 10/06/20 at 13:17; Stop 10/06/20 at 13:17; Status DC Ondansetron HCl (Zofran) 4 mg 1X ONCE IVP Last administered on 10/06/20at 13:25; Start 10/06/20 at 13:30; Stop 10/06/20 at 13:31; Status DC Morphine Sulfate (Morphine Sulfate) 4 mg 1X ONCE IVP Last administered on 10/06/20at 13:32; Start 10/06/20 at 13:30; Stop 10/06/20 at 13:31; Status DC Sodium Chloride 1,000 ml @ 1,000 mls/hr 1X ONCE IV Last administered on 10/06/20at 13:30; Start 10/06/20 at 13:30; Stop 10/06/20 at 14:29; Status DC Iohexol (Omnipaque 300 Mg/ml) 75 ml 1X ONCE IV Last administered on 10/06/20at 14:02; Start 10/06/20 at 14:00; Stop 10/06/20 at 14:01; Status DC Info (CONTRAST GIVEN -- Rx MONITORING) 1 each PRN DAILY PRN MC SEE COMMENTS; Start 10/06/20 at 14:00; Stop 10/08/20 at 13:59 Hydromorphone HCl (Dilaudid) 1 mg 1X ONCE IVP Last administered on 10/06/20at 15:16; Start 10/06/20 at 15:15; Stop 10/06/20 at 15:16; Status DC Ondansetron HCl (Zofran) 4 mg 1X ONCE IVP Last administered on 10/06/20at 15:23; Start 10/06/20 at 15:30; Stop 10/06/20 at 15:31; Status DC Fentanyl Citrate (Fentanyl 2ml Vial) 25 mcg PRN Q5MIN PRN IVP MILD PAIN 1-3; Start 10/06/20 at 16:00; Stop 10/07/20 at 04:20; Status DC Fentanyl Citrate (Fentanyl 2ml Vial) 50 mcg PRN Q5MIN PRN IVP MODERATE PAIN 4- 6; Start 10/06/20 at 16:00; Stop 10/07/20 at 04:20; Status DC Morphine Sulfate (Morphine Sulfate) 1 mg PRN Q10MIN PRN IVP SEVERE PAIN 7-10 Last administered on 10/06/20at 18:20; Start 10/06/20 at 16:00; Stop 10/07/20 at 04:20; Status DC Ringer's Solution 1,000 ml @ 30 mls/hr Q24H IV ; Start 10/06/20 at 16:00; Stop 10/07/20 at 03:59; Status DC Hydromorphone HCl (Dilaudid) 0.5 mg PRN Q10MIN PRN IVP SEVERE PAIN 7-10, 2nd CHOICE; Start 10/06/20 at 16:00; Stop 10/07/20 at 04:20; Status DC Prochlorperazine Edisylate (Compazine) 5 mg PACU PRN PRN IVP NAUSEA, MRX1 Last administered on 10/06/20at 18:22; Start 10/06/20 at 16:00; Stop 10/07/20 at 04:20; Status DC Bupivacaine HCl/ Epinephrine Bitart (Sensorcaine-Epi 0.25%-1:895750 Mpf) 30 ml STK-MED ONCE .ROUTE Last administered on 10/06/20at 16:53; Start 10/06/20 at 16:03; Stop 10/06/20 at 16:03; Status DC Propofol (Diprivan) 200 mg STK-MED ONCE IV ; Start 10/06/20 at 16:10; Stop 10/06/20 at 16:10; Status DC Lidocaine HCl (Xylocaine-Mpf 1% 5ml Vial) 5 ml STK-MED ONCE .ROUTE ; Start 10/06/20 at 16:10; Stop 10/06/20 at 16:10; Status DC Ondansetron HCl (Zofran) 4 mg STK-MED ONCE .ROUTE ; Start 10/06/20 at 16:10; Stop 10/06/20 at 16:10; Status DC Dexamethasone Sodium Phosphate (Decadron) 4 mg STK-MED ONCE .ROUTE ; Start 10/06/20 at 16:10; Stop 10/06/20 at 16:10; Status DC Rocuronium Hershey (Zemuron) 50 mg STK-MED ONCE .ROUTE ; Start 10/06/20 at 16:10; Stop 10/06/20 at 16:10; Status DC Fentanyl Citrate (Fentanyl 2ml Vial) 100 mcg STK-MED ONCE .ROUTE ; Start 10/06/20 at 16:10; Stop 10/06/20 at 16:11; Status DC Glycopyrrolate (Robinul) 1 mg STK-MED ONCE .ROUTE ; Start 10/06/20 at 16:11; Stop 10/06/20 at 16:11; Status DC Neostigmine Hershey (Neostigmine Methylsulfate) 5 mg STK-MED ONCE .ROUTE ; Start 10/06/20 at 16:11; Stop 10/06/20 at 16:11; Status DC Piperacillin Sod/ Tazobactam Sod 3.375 gm/Sodium Chloride 50 ml @ 100 mls/hr 1X ONCE IV ; Start 10/06/20 at 16:30; Stop 10/06/20 at 16:59; Status UNV Piperacillin Sod/ Tazobactam Sod 3.375 gm/Sodium Chloride 50 ml @ 100 mls/hr 1X ONCE IV Last administered on 10/06/20at 16:40; Start 10/06/20 at 16:30; Stop 10/06/20 at 16:59; Status DC Fentanyl Citrate (Fentanyl 2ml Vial) 100 mcg STK-MED ONCE .ROUTE ; Start 10/06/20 at 17:14; Stop 10/06/20 at 17:14; Status DC Cellulose (Surgicel Hemostat 4x8) 1 each STK-MED ONCE .ROUTE Last administered on 10/06/20at 17:17; Start 10/06/20 at 17:14; Stop 10/06/20 at 17:15; Status DC Sevoflurane (Ultane) 60 ml STK-MED ONCE IH ; Start 10/06/20 at 17:19; Stop 10/06/20 at 17:19; Status DC Sodium Chloride (Normal Saline Flush) 3 ml QSHIFT PRN IV AFTER MEDS AND BLOOD DRAWS; Start 10/06/20 at 17:45 Morphine Sulfate (Morphine Sulfate) 2 mg PRN Q3HRS PRN IV PAIN; Start 10/06/20 at 17:45 Oxycodone/ Acetaminophen (Percocet 5/325) 1 tab PRN Q4HRS PRN PO MILD PAIN, 1ST CHOICE; Start 10/06/20 at 17:45 Oxycodone/ Acetaminophen (Percocet 5/325) 2 tab PRN Q4HRS PRN PO MODERATE PAIN, SEVERE PAIN Last administered on 10/07/20at 07:31; Start 10/06/20 at 17:45 Ondansetron HCl (Zofran) 4 mg PRN Q6HRS PRN IV NAUSEA, 1ST CHOICE; Start 10/06/20 at 17:45 Dextrose/Lactated Ringer's 1,000 ml @ 75 mls/hr [id number] IV Last administered on 10/07/20at 07:33; Start 10/06/20 at 17:45 Piperacillin Sod/ Tazobactam Sod 3.375 gm/Sodium Chloride 50 ml @ 100 mls/hr Q6HRS IV Last administered on 10/07/20at 06:16; Start 10/07/20 at 00:00 Lorazepam (Ativan Inj) 2 mg PRN Q4HRS PRN IVP ANXIETY / AGITATION; Start 10/06/20 at 18:15 Morphine Sulfate (Morphine Sulfate) 2 mg STK-MED ONCE .ROUTE ; Start 10/06/20 at 18:06; Stop 10/06/20 at 18:06; Status DC Prochlorperazine Edisylate (Compazine) 10 mg STK-MED ONCE .ROUTE ; Start 10/06/20 at 18:20; Stop 10/06/20 at 18:20; Status DC Ondansetron HCl (Zofran) 4 mg PRN Q8HRS PRN IVP NAUSEA/VOMITING; Start 10/06/20 at 19:00; Stop 10/07/20 at 18:59 Active Scripts Active No Active Prescriptions or Reported Medications ROS: Review of Systems Review of System REVIEW OF SYSTEMS: GENERAL: Denies weakness SKIN: No bruising, hair changes or rashes. EYES: No blurred, double or loss of vision. NOSE AND THROAT: No history of nosebleeds, hoarseness or sore throat. HEART: No history of palpitations, chest pain or shortness of breath on exertion. LUNGS: Denies cough, hemoptysis, wheezing or shortness of breath. GASTROINTESTINAL: Denies changes in appetite, nausea, vomiting, diarrhea or constipation. GENITOURINARY: No history of frequency, urgency, hesitancy or nocturia. NEUROLOGIC: Denies history of numbness, tingling, or tremor. PSYCHIATRIC: No history of panic, anxiety or depression. ENDOCRINE: No history of heat or cold intolerance, polyuria or polydipsia. EXTREMITIES: Denies joint pain, pain on walking or stiffness. Physical Exam: Vital Signs: Vital Signs Date Time Temp Pulse Resp B/P (MAP) Pulse Ox O2 Delivery O2 Flow Rate FiO2 10/07/20 04:15 15 93 Room Air 10/07/20 03:06 98.1 88 126/72 (90) 98.1 10/06/20 17:53 10 Physcial Exam: GEN: No apparent distress. Alert and oriented HEENT: Normal cephalic, atraumatic, external auditory canals are patent EYES: Extraocular muscles are intact, pupil are equally round and reactive to light and accommodation MUSCULOSKELETAL: Well developed , well nourished, good range of motion ENDOCRINE: No thyromegaly was palpated LYMPHATICS: No cervical chain or axillary nodes were noted HEMATOPOIETIC: No bruising NECK: Supple, no JVD, no thyromegaly was noted LUNGS: Clear to auscultation in all lung lai without rhonchi or wheezing HEART: RRR, S!, S2 present. Peripheral pulses intact, no obvious murmurs noted ABDOMEN: Soft, nontender. Positive bowel sounds, no organomegaly, normal bowel sounds EXTREMITIES: Without clubbing, cyanosis, or edema. Pedal pulses intact. Negative Homans sign NEUROLOGIC: Normal speech and tone. A&O x 3, moves all extremities, no obvious focal deficits PSYCHIATRIC: Normal affect, normal mood. Stable SKIN: No ulcerations or rashes, good skin turgor, no jaundice VASCULAR: Good capillary refill, neurovascular bundle appears to be intact Labs: Labs: Laboratory Tests Test 10/06/20 13:25 10/06/20 13:35 10/06/20 15:53 10/06/20 16:00 White Blood Count 14.5 x10^3/uL (4.0-11.0) Red Blood Count 4.11 x10^6/uL (4.30-5.70) Hemoglobin 12.9 g/dL (13.0-17.5) Hematocrit 37.7 % (39.0-53.0) Mean Corpuscular Volume 92 fL (79-100) Mean Corpuscular Hemoglobin 31 pg (25-35) Mean Corpuscular Hemoglobin Concent 34 g/dL (31-37) Red Cell Distribution Width 13.7 % (11.5-14.5) Platelet Count 294 x10^3/uL (140-400) Neutrophils (%) (Auto) 89 % (31-73) Lymphocytes (%) (Auto) 5 % (24-48) Monocytes (%) (Auto) 5 % (0-9) Eosinophils (%) (Auto) 0 % (0-3) Basophils (%) (Auto) 0 % (0-3) Neutrophils # (Auto) 12.9 x10^3/uL (1.8-7.7) Lymphocytes # (Auto) 0.8 x10^3/uL (1.0-4.8) Monocytes # (Auto) 0.8 x10^3/uL (0.0-1.1) Eosinophils # (Auto) 0.0 x10^3/uL (0.0-0.7) Basophils # (Auto) 0.0 x10^3/uL (0.0-0.2) Segmented Neutrophils % 85 % (35-66) Band Neutrophils % 3 % (0-9) Lymphocytes % 7 % (24-48) Monocytes % 5 % (0-10) Platelet Estimate Adequate (ADEQUATE) Sodium Level 139 mmol/L (136-145) Potassium Level 3.9 mmol/L (3.5-5.1) Chloride Level 105 mmol/L (98-107) Carbon Dioxide Level 24 mmol/L (21-32) Anion Gap 10 (6-14) Blood Urea Nitrogen 18 mg/dL (8-26) Creatinine 1.1 mg/dL (0.7-1.3) Estimated GFR (Cockcroft-Gault) 67.2 BUN/Creatinine Ratio 16 (6-20) Glucose Level 124 mg/dL (70-99) Calcium Level 8.8 mg/dL (8.5-10.1) Total Bilirubin 0.6 mg/dL (0.2-1.0) Aspartate Amino Transf (AST/SGOT) 14 U/L (15-37) Alanine Aminotransferase (ALT/SGPT) 32 U/L (16-63) Alkaline Phosphatase 72 U/L (46-116) Total Protein 7.2 g/dL (6.4-8.2) Albumin 3.6 g/dL (3.4-5.0) Albumin/Globulin Ratio 1.0 (1.0-1.7) Lipase 62 U/L (73-393) Ethyl Alcohol Level < 10 mg/dL (0-10) SARS-CoV-2 Antigen (Rapid) Negative (NEGATIVE) Influenza Type A Antigen Negative (NEGATIVE) Influenza Type B Antigen Negative (NEGATIVE) Urine Collection Type Void Urine Color Yellow Urine Clarity Clear Urine pH 5.5 (<5.0-8.0) Urine Specific [place] >=1.030 (1.000-1.030) Urine Protein Negative mg/dL (NEG-TRACE) Urine Glucose (UA) Negative mg/dL (NEG) Urine Ketones (Stick) Negative mg/dL (NEG) Urine Blood Small (NEG) Urine Nitrite Negative (NEG) Urine Bilirubin Negative (NEG) Urine Urobilinogen Dipstick 0.2 mg/dL (0.2 mg/dL) Urine Leukocyte Esterase Negative (NEG) Urine RBC 1-2 /HPF (0-2) Urine WBC 1-4 /HPF (0-4) Urine Squamous Epithelial Cells Few /LPF Urine Bacteria Few /HPF (0-FEW) Urine Opiates Screen Pos (NEG) Urine Methadone Screen Neg (NEG) Urine Barbiturates Neg (NEG) Urine Phencyclidine Screen Neg (NEG) Urine Amphetamine/Methamphetamine Neg (NEG) Urine Benzodiazepines Screen Neg (NEG) Urine Cocaine Screen Neg (NEG) Urine Cannabinoids Screen Neg (NEG) Urine Ethyl Alcohol Neg (NEG) Test 10/07/20 04:30 White Blood Count 11.7 x10^3/uL (4.0-11.0) Red Blood Count 3.84 x10^6/uL (4.30-5.70) Hemoglobin 12.2 g/dL (13.0-17.5) Hematocrit 35.6 % (39.0-53.0) Mean Corpuscular Volume 93 fL (79-100) Mean Corpuscular Hemoglobin 32 pg (25-35) Mean Corpuscular Hemoglobin Concent 34 g/dL (31-37) Red Cell Distribution Width 13.7 % (11.5-14.5) Platelet Count 276 x10^3/uL (140-400) Neutrophils (%) (Auto) 92 % (31-73) Lymphocytes (%) (Auto) 4 % (24-48) Monocytes (%) (Auto) 4 % (0-9) Eosinophils (%) (Auto) 0 % (0-3) Basophils (%) (Auto) 0 % (0-3) Neutrophils # (Auto) 10.7 x10^3/uL (1.8-7.7) Lymphocytes # (Auto) 0.5 x10^3/uL (1.0-4.8) Monocytes # (Auto) 0.4 x10^3/uL (0.0-1.1) Eosinophils # (Auto) 0.0 x10^3/uL (0.0-0.7) Basophils # (Auto) 0.0 x10^3/uL (0.0-0.2) Laboratory Tests Test 10/06/20 13:25 10/06/20 13:35 10/06/20 15:53 10/06/20 16:00 White Blood Count 14.5 x10^3/uL (4.0-11.0) Red Blood Count 4.11 x10^6/uL (4.30-5.70) Hemoglobin 12.9 g/dL (13.0-17.5) Hematocrit 37.7 % (39.0-53.0) Mean Corpuscular Volume 92 fL (79-100) Mean Corpuscular Hemoglobin 31 pg (25-35) Mean Corpuscular Hemoglobin Concent 34 g/dL (31-37) Red Cell Distribution Width 13.7 % (11.5-14.5) Platelet Count 294 x10^3/uL (140-400) Neutrophils (%) (Auto) 89 % (31-73) Lymphocytes (%) (Auto) 5 % (24-48) Monocytes (%) (Auto) 5 % (0-9) Eosinophils (%) (Auto) 0 % (0-3) Basophils (%) (Auto) 0 % (0-3) Neutrophils # (Auto) 12.9 x10^3/uL (1.8-7.7) Lymphocytes # (Auto) 0.8 x10^3/uL (1.0-4.8) Monocytes # (Auto) 0.8 x10^3/uL (0.0-1.1) Eosinophils # (Auto) 0.0 x10^3/uL (0.0-0.7) Basophils # (Auto) 0.0 x10^3/uL (0.0-0.2) Segmented Neutrophils % 85 % (35-66) Band Neutrophils % 3 % (0-9) Lymphocytes % 7 % (24-48) Monocytes % 5 % (0-10) Platelet Estimate Adequate (ADEQUATE) Sodium Level 139 mmol/L (136-145) Potassium Level 3.9 mmol/L (3.5-5.1) Chloride Level 105 mmol/L (98-107) Carbon Dioxide Level 24 mmol/L (21-32) Anion Gap 10 (6-14) Blood Urea Nitrogen 18 mg/dL (8-26) Creatinine 1.1 mg/dL (0.7-1.3) Estimated GFR (Cockcroft-Gault) 67.2 BUN/Creatinine Ratio 16 (6-20) Glucose Level 124 mg/dL (70-99) Calcium Level 8.8 mg/dL (8.5-10.1) Total Bilirubin 0.6 mg/dL (0.2-1.0) Aspartate Amino Transf (AST/SGOT) 14 U/L (15-37) Alanine Aminotransferase (ALT/SGPT) 32 U/L (16-63) Alkaline Phosphatase 72 U/L (46-116) Total Protein 7.2 g/dL (6.4-8.2) Albumin 3.6 g/dL (3.4-5.0) Albumin/Globulin Ratio 1.0 (1.0-1.7) Lipase 62 U/L (73-393) Ethyl Alcohol Level < 10 mg/dL (0-10) SARS-CoV-2 Antigen (Rapid) Negative (NEGATIVE) Influenza Type A Antigen Negative (NEGATIVE) Influenza Type B Antigen Negative (NEGATIVE) Urine Collection Type Void Urine Color Yellow Urine Clarity Clear Urine pH 5.5 (<5.0-8.0) Urine Specific [place] >=1.030 (1.000-1.030) Urine Protein Negative mg/dL (NEG-TRACE) Urine Glucose (UA) Negative mg/dL (NEG) Urine Ketones (Stick) Negative mg/dL (NEG) Urine Blood Small (NEG) Urine Nitrite Negative (NEG) Urine Bilirubin Negative (NEG) Urine Urobilinogen Dipstick 0.2 mg/dL (0.2 mg/dL) Urine Leukocyte Esterase Negative (NEG) Urine RBC 1-2 /HPF (0-2) Urine WBC 1-4 /HPF (0-4) Urine Squamous Epithelial Cells Few /LPF Urine Bacteria Few /HPF (0-FEW) Urine Opiates Screen Pos (NEG) Urine Methadone Screen Neg (NEG) Urine Barbiturates Neg (NEG) Urine Phencyclidine Screen Neg (NEG) Urine Amphetamine/Methamphetamine Neg (NEG) Urine Benzodiazepines Screen Neg (NEG) Urine Cocaine Screen Neg (NEG) Urine Cannabinoids Screen Neg (NEG) Urine Ethyl Alcohol Neg (NEG) Test 10/07/20 04:30 White Blood Count 11.7 x10^3/uL (4.0-11.0) Red Blood Count 3.84 x10^6/uL (4.30-5.70) Hemoglobin 12.2 g/dL (13.0-17.5) Hematocrit 35.6 % (39.0-53.0) Mean Corpuscular Volume 93 fL (79-100) Mean Corpuscular Hemoglobin 32 pg (25-35) Mean Corpuscular Hemoglobin Concent 34 g/dL (31-37) Red Cell Distribution Width 13.7 % (11.5-14.5) Platelet Count 276 x10^3/uL (140-400) Neutrophils (%) (Auto) 92 % (31-73) Lymphocytes (%) (Auto) 4 % (24-48) Monocytes (%) (Auto) 4 % (0-9) Eosinophils (%) (Auto) 0 % (0-3) Basophils (%) (Auto) 0 % (0-3) Neutrophils # (Auto) 10.7 x10^3/uL (1.8-7.7) Lymphocytes # (Auto) 0.5 x10^3/uL (1.0-4.8) Monocytes # (Auto) 0.4 x10^3/uL (0.0-1.1) Eosinophils # (Auto) 0.0 x10^3/uL (0.0-0.7) Basophils # (Auto) 0.0 x10^3/uL (0.0-0.2) Images: Images PROCEDURE: CT ABD PELV W/ IV CONTRST ONLY EXAMINATION: CT abdomen and pelvis with IV contrast. INDICATION:65 years, Male, abdominal pain, nausea and vomiting.. TECHNIQUE: Axial CT images of the abdomen and pelvis were obtained. Coronal and sagittal reformatted performed. COMPARISON: None. Exposure: One or more of the following individualized dose reduction techniques were utilized for this examination: 1. Automated exposure control 2. Adjustment of the mA and/or kV according to patient size 3. Use of iterative reconstruction technique. FINDINGS: LOWER CHEST: Calcified granuloma in the left lung base. Dependent subsegmental atelectasis in bibasilar lungs, greater in the left. ABDOMEN/PELVIS: Distended mid/distal appendix with appendicoliths and periappendicular fat stranding. No extraluminal gas to suggest perforation. No abscess identified. No bowel obstruction. Colonic diverticulosis without diverticulitis. Small hiatal hernia. Normal size and morphology of the liver with homogeneous enhancement. No suspicious focal hepatic lesion. Spleen, gallbladder, biliary ducts and adrenals are unremarkable. Mildly atrophic pancreas with fat infiltration. No hydronephrosis or nephrolithiasis in either kidney. Nonspecific bilateral perinephric fat stranding. Normal caliber abdominal aorta. Mesenteric arteries and portal vein are patent. Calcified periaortic lymph nodes. No lymphadenopathy in the abdomen or pelvis by size criteria. No pneumoperitoneum or ascites. Unremarkable urinary bladder. Coarse calcifications in the prostate. MUSCULOSKELETAL: No acute osseous process. Mild degenerative changes in the spine. Small fat- containing bilateral hernia. IMPRESSION: Acute uncomplicated appendicitis. Assessment/Plan Assessment/Plan Acute abdominal pain due to acute appendicitis Obesity class I History of seizures Admit to hospitalist service for further management General surgery consult N.p.o. Continue IV fluids Continue empiric IV antibiotics Lovenox for DVT prophylaxis Protonix GI prophylaxis ADA diet CODE STATUS full Discussed with RN and SW Disposition on-call to the OR with surgery for laparoscopic appendectomy DPOA: Maritza Patrick Justifications for Admission Other Justification CANDIDO HOFF MD Oct 07, 2020 08:12
[2020-10-07] MEDS ORDERED: OXYC1TAB15 PO (09:55)
--- NOTE | 2020-10-07 09:55 | PDOC ---
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 10/07/20 0954: SURGICAL PROGRESS NOTE DATE: 10/07/20 TIME: 09:54 Subjective a little sore did tolerate breakfast Vital Signs Vital Signs Date Time Temp Pulse Resp B/P (MAP) Pulse Ox O2 Delivery O2 Flow Rate FiO2 10/07/20 07:10 98.8 84 18 113/51 (71) 91 Room Air 98.8 10/06/20 17:53 10 I&O Intake and Output 10/07/20 07:00 Intake Total 1330 ml Output Total 30 ml Balance 1300 ml Intake Oral 580 ml IV Total 750 ml Output Estimated Blood Loss 30 ml # Voids 2 General: Alert, Oriented X3, Cooperative Abdomen: Soft, Other (lap dressings dry ) Labs Laboratory Tests Test 10/06/20 13:25 10/06/20 13:35 10/06/20 15:53 10/06/20 16:00 White Blood Count 14.5 x10^3/uL (4.0-11.0) Red Blood Count 4.11 x10^6/uL (4.30-5.70) Hemoglobin 12.9 g/dL (13.0-17.5) Hematocrit 37.7 % (39.0-53.0) Mean Corpuscular Volume 92 fL (79-100) Mean Corpuscular Hemoglobin 31 pg (25-35) Mean Corpuscular Hemoglobin Concent 34 g/dL (31-37) Red Cell Distribution Width 13.7 % (11.5-14.5) Platelet Count 294 x10^3/uL (140-400) Neutrophils (%) (Auto) 89 % (31-73) Lymphocytes (%) (Auto) 5 % (24-48) Monocytes (%) (Auto) 5 % (0-9) Eosinophils (%) (Auto) 0 % (0-3) Basophils (%) (Auto) 0 % (0-3) Neutrophils # (Auto) 12.9 x10^3/uL (1.8-7.7) Lymphocytes # (Auto) 0.8 x10^3/uL (1.0-4.8) Monocytes # (Auto) 0.8 x10^3/uL (0.0-1.1) Eosinophils # (Auto) 0.0 x10^3/uL (0.0-0.7) Basophils # (Auto) 0.0 x10^3/uL (0.0-0.2) Segmented Neutrophils % 85 % (35-66) Band Neutrophils % 3 % (0-9) Lymphocytes % 7 % (24-48) Monocytes % 5 % (0-10) Platelet Estimate Adequate (ADEQUATE) Sodium Level 139 mmol/L (136-145) Potassium Level 3.9 mmol/L (3.5-5.1) Chloride Level 105 mmol/L (98-107) Carbon Dioxide Level 24 mmol/L (21-32) Anion Gap 10 (6-14) Blood Urea Nitrogen 18 mg/dL (8-26) Creatinine 1.1 mg/dL (0.7-1.3) Estimated GFR (Cockcroft-Gault) 67.2 BUN/Creatinine Ratio 16 (6-20) Glucose Level 124 mg/dL (70-99) Calcium Level 8.8 mg/dL (8.5-10.1) Total Bilirubin 0.6 mg/dL (0.2-1.0) Aspartate Amino Transf (AST/SGOT) 14 U/L (15-37) Alanine Aminotransferase (ALT/SGPT) 32 U/L (16-63) Alkaline Phosphatase 72 U/L (46-116) Total Protein 7.2 g/dL (6.4-8.2) Albumin 3.6 g/dL (3.4-5.0) Albumin/Globulin Ratio 1.0 (1.0-1.7) Lipase 62 U/L (73-393) Ethyl Alcohol Level < 10 mg/dL (0-10) SARS-CoV-2 Antigen (Rapid) Negative (NEGATIVE) Influenza Type A Antigen Negative (NEGATIVE) Influenza Type B Antigen Negative (NEGATIVE) Urine Collection Type Void Urine Color Yellow Urine Clarity Clear Urine pH 5.5 (<5.0-8.0) Urine Specific [place] >=1.030 (1.000-1.030) Urine Protein Negative mg/dL (NEG-TRACE) Urine Glucose (UA) Negative mg/dL (NEG) Urine Ketones (Stick) Negative mg/dL (NEG) Urine Blood Small (NEG) Urine Nitrite Negative (NEG) Urine Bilirubin Negative (NEG) Urine Urobilinogen Dipstick 0.2 mg/dL (0.2 mg/dL) Urine Leukocyte Esterase Negative (NEG) Urine RBC 1-2 /HPF (0-2) Urine WBC 1-4 /HPF (0-4) Urine Squamous Epithelial Cells Few /LPF Urine Bacteria Few /HPF (0-FEW) Urine Opiates Screen Pos (NEG) Urine Methadone Screen Neg (NEG) Urine Barbiturates Neg (NEG) Urine Phencyclidine Screen Neg (NEG) Urine Amphetamine/Methamphetamine Neg (NEG) Urine Benzodiazepines Screen Neg (NEG) Urine Cocaine Screen Neg (NEG) Urine Cannabinoids Screen Neg (NEG) Urine Ethyl Alcohol Neg (NEG) Test 10/07/20 04:30 White Blood Count 11.7 x10^3/uL (4.0-11.0) Red Blood Count 3.84 x10^6/uL (4.30-5.70) Hemoglobin 12.2 g/dL (13.0-17.5) Hematocrit 35.6 % (39.0-53.0) Mean Corpuscular Volume 93 fL (79-100) Mean Corpuscular Hemoglobin 32 pg (25-35) Mean Corpuscular Hemoglobin Concent 34 g/dL (31-37) Red Cell Distribution Width 13.7 % (11.5-14.5) Platelet Count 276 x10^3/uL (140-400) Neutrophils (%) (Auto) 92 % (31-73) Lymphocytes (%) (Auto) 4 % (24-48) Monocytes (%) (Auto) 4 % (0-9) Eosinophils (%) (Auto) 0 % (0-3) Basophils (%) (Auto) 0 % (0-3) Neutrophils # (Auto) 10.7 x10^3/uL (1.8-7.7) Lymphocytes # (Auto) 0.5 x10^3/uL (1.0-4.8) Monocytes # (Auto) 0.4 x10^3/uL (0.0-1.1) Eosinophils # (Auto) 0.0 x10^3/uL (0.0-0.7) Basophils # (Auto) 0.0 x10^3/uL (0.0-0.2) Laboratory Tests Test 10/06/20 13:25 10/06/20 13:35 10/06/20 15:53 10/06/20 16:00 White Blood Count 14.5 x10^3/uL (4.0-11.0) Red Blood Count 4.11 x10^6/uL (4.30-5.70) Hemoglobin 12.9 g/dL (13.0-17.5) Hematocrit 37.7 % (39.0-53.0) Mean Corpuscular Volume 92 fL (79-100) Mean Corpuscular Hemoglobin 31 pg (25-35) Mean Corpuscular Hemoglobin Concent 34 g/dL (31-37) Red Cell Distribution Width 13.7 % (11.5-14.5) Platelet Count 294 x10^3/uL (140-400) Neutrophils (%) (Auto) 89 % (31-73) Lymphocytes (%) (Auto) 5 % (24-48) Monocytes (%) (Auto) 5 % (0-9) Eosinophils (%) (Auto) 0 % (0-3) Basophils (%) (Auto) 0 % (0-3) Neutrophils # (Auto) 12.9 x10^3/uL (1.8-7.7) Lymphocytes # (Auto) 0.8 x10^3/uL (1.0-4.8) Monocytes # (Auto) 0.8 x10^3/uL (0.0-1.1) Eosinophils # (Auto) 0.0 x10^3/uL (0.0-0.7) Basophils # (Auto) 0.0 x10^3/uL (0.0-0.2) Segmented Neutrophils % 85 % (35-66) Band Neutrophils % 3 % (0-9) Lymphocytes % 7 % (24-48) Monocytes % 5 % (0-10) Platelet Estimate Adequate (ADEQUATE) Sodium Level 139 mmol/L (136-145) Potassium Level 3.9 mmol/L (3.5-5.1) Chloride Level 105 mmol/L (98-107) Carbon Dioxide Level 24 mmol/L (21-32) Anion Gap 10 (6-14) Blood Urea Nitrogen 18 mg/dL (8-26) Creatinine 1.1 mg/dL (0.7-1.3) Estimated GFR (Cockcroft-Gault) 67.2 BUN/Creatinine Ratio 16 (6-20) Glucose Level 124 mg/dL (70-99) Calcium Level 8.8 mg/dL (8.5-10.1) Total Bilirubin 0.6 mg/dL (0.2-1.0) Aspartate Amino Transf (AST/SGOT) 14 U/L (15-37) Alanine Aminotransferase (ALT/SGPT) 32 U/L (16-63) Alkaline Phosphatase 72 U/L (46-116) Total Protein 7.2 g/dL (6.4-8.2) Albumin 3.6 g/dL (3.4-5.0) Albumin/Globulin Ratio 1.0 (1.0-1.7) Lipase 62 U/L (73-393) Ethyl Alcohol Level < 10 mg/dL (0-10) SARS-CoV-2 Antigen (Rapid) Negative (NEGATIVE) Influenza Type A Antigen Negative (NEGATIVE) Influenza Type B Antigen Negative (NEGATIVE) Urine Collection Type Void Urine Color Yellow Urine Clarity Clear Urine pH 5.5 (<5.0-8.0) Urine Specific [place] >=1.030 (1.000-1.030) Urine Protein Negative mg/dL (NEG-TRACE) Urine Glucose (UA) Negative mg/dL (NEG) Urine Ketones (Stick) Negative mg/dL (NEG) Urine Blood Small (NEG) Urine Nitrite Negative (NEG) Urine Bilirubin Negative (NEG) Urine Urobilinogen Dipstick 0.2 mg/dL (0.2 mg/dL) Urine Leukocyte Esterase Negative (NEG) Urine RBC 1-2 /HPF (0-2) Urine WBC 1-4 /HPF (0-4) Urine Squamous Epithelial Cells Few /LPF Urine Bacteria Few /HPF (0-FEW) Urine Opiates Screen Pos (NEG) Urine Methadone Screen Neg (NEG) Urine Barbiturates Neg (NEG) Urine Phencyclidine Screen Neg (NEG) Urine Amphetamine/Methamphetamine Neg (NEG) Urine Benzodiazepines Screen Neg (NEG) Urine Cocaine Screen Neg (NEG) Urine Cannabinoids Screen Neg (NEG) Urine Ethyl Alcohol Neg (NEG) Test 10/07/20 04:30 White Blood Count 11.7 x10^3/uL (4.0-11.0) Red Blood Count 3.84 x10^6/uL (4.30-5.70) Hemoglobin 12.2 g/dL (13.0-17.5) Hematocrit 35.6 % (39.0-53.0) Mean Corpuscular Volume 93 fL (79-100) Mean Corpuscular Hemoglobin 32 pg (25-35) Mean Corpuscular Hemoglobin Concent 34 g/dL (31-37) Red Cell Distribution Width 13.7 % (11.5-14.5) Platelet Count 276 x10^3/uL (140-400) Neutrophils (%) (Auto) 92 % (31-73) Lymphocytes (%) (Auto) 4 % (24-48) Monocytes (%) (Auto) 4 % (0-9) Eosinophils (%) (Auto) 0 % (0-3) Basophils (%) (Auto) 0 % (0-3) Neutrophils # (Auto) 10.7 x10^3/uL (1.8-7.7) Lymphocytes # (Auto) 0.5 x10^3/uL (1.0-4.8) Monocytes # (Auto) 0.4 x10^3/uL (0.0-1.1) Eosinophils # (Auto) 0.0 x10^3/uL (0.0-0.7) Basophils # (Auto) 0.0 x10^3/uL (0.0-0.2) Problem List Problems Medical Problems: (1) Anemia Status: Acute Assessment/Plan s/p appy wbc 11 ok to dc home Justicifation of Admission Dx: Justifications for Admission: Justification of Admission Dx: Yes Angina: Cresendo Worsening of Sym DERRICK CORREA MD 10/07/20 1057: SURGICAL PROGRESS NOTE Assessment/Plan Agree with Ceci assessment and plan NAVI HASSAN APRN Oct 07, 2020 09:54 DERRICK CORREA MD Oct 07, 2020 10:57
--- NOTE | 2020-10-07 10:35 | NUR ---
SW following. Discussed with RN, pt from home, room air, GI soft. Pt had surgery on 10/06/20. Rapid COVID-19 negative. Per surgery - okay to discharge. RN advised no SW needs at this time. SW will continue to follow.
[2020-10-07 11:15] VITALS: BP 107/53
--- NOTE | 2020-10-07 11:19 | NUR ---
patient is eating and drinking. Ok to discontinue IV fluids per Dr. Lambert
--- NOTE | 2020-10-07 11:40 | DISCH ---
DISCHARGE INSTRUCTIONS Condition on Discharge Condition on Discharge: Stable Activity After Discharge Activity Instructions for Disc: Activity as tolerated Lifting Instructions after Dis: No heavy lifting, No pulling or pushing, Do not lift >10 pounds Exercise Instruction after Dis: Walk 10 min, 3 x per day Driving Instructions after Dis: Do not drive today Weight Bearing Status after Di: Full weight bearing, As tolerated Diet after Discharge Diet after Discharge: Cardiac Contacting the DR. after DC Call your doctor for: If your condition worsens Follow-Up Follow up with: PCP within 2 weeks of discharge Follow Up With: General surgery within 2 weeks of discharge for postoperative check CANDIDO HOFF MD Oct 07, 2020 11:40
[2020-10-07] MEDS ORDERED: SENN1TAB99 PO (11:41)
[2020-10-07] MEDS ORDERED: LACTOBACILLUS RHAMNOSUS GG 1 CAPSULE. PO SCH (21:00)
--- NOTE | 2020-10-10 17:06 | PATHOLOGY ---
[facility] Accession Number: [id number] . 01 Material submitted: . appendix - APPENDIX . 01 Clinical history: . ACUTE APPENDICITIS, N AND V LAP APPY . 02 Diagnosis: Appendix, laparoscopic appendectomy: - Acute appendicitis. . ([facility]:mm; 10/10/2020) [facility] 10/10/2020 1107 Local . 02 Comment: There is no evidence of perforation. There is no evidence of malignancy. . ([facility]:mml; 10/10/2020) . 02 Electronically signed: . Laz Hernandez MD, Pathologist NPI- [id number] . 01 Gross description: . Fixative: Formalin Labeled: Appendix Appendix length: 13.3 cm Appendix diameter: 1.1 cm Mesoappendix: 2.2 cm Proximal margin: Stapled [place]: Light ellis-chavez and smooth Cut surface: Dilated lumen filled with fecal material Luminal diameter: Up to 1.0 cm Perforation: None identified Lesions/abnormalities: None identified A1 Proximal margin (inked black) and distal tip, bisected A2 Mid appendix ([facility]; 10/07/2020) [facility] 10/10/2020 1105 Local . 02 Pathologist provided ICD-10: K35.80 . 02 CPT . 322377 Specimen Comment: A courtesy copy of this report has been sent to [phone], [phone] Specimen Comment: [id number] Specimen Comment: Report sent to DR. ADORNO / DR EGAN Performed at: 01 [facility] [address], [place], [place] [id number] MD Francisco Javier Horvath MD Phone: [phone] Performed at: [facility] [address], [place] [id number] MD Laz Hernandez MD Phone: [phone]
== END 2020-10-07 13:30 | disposition home or self-care (01) ==
LOC: ER 13:05 → 4 NORTH 15:54 → INTOOBSV 15:54 → 4 NORTH 16:00
PROVIDERS: ADMIT Internal Medicine; ATTEND Internal Medicine
DX: K35.80 Unspecified acute appendicitis (principal); Z20.822 Contact with and (suspected) exposure to COVID-19; D64.89 Other specified anemias; E66.9 Obesity, unspecified; J45.909 Unspecified asthma, uncomplicated; E78.5 Hyperlipidemia, unspecified; G40.409 Other generalized epilepsy and epileptic syndromes, not intractable, without status epilepticus; Z83.3 Family history of diabetes mellitus
CPT/HCPCS: 36415; 44970; 74177; 80053; 80307; 81001; 83690; 85007; 85025; 87426; 87804; 88304; 96361; 96365; 96366; 96375; 96376; 99285; A4314; A4364; A4930; A6219; G0378; G0480; J0780; J1100; J1170; J2270; J2405; J2543; J2704; J2710; J3010; J3490; J7030; J7121; Q9967; U0003; U0005; 96374; G0379